=== PATIENT | male | born 1945 | race Caucasian/White ===

== ENCOUNTER → 2017-07-24 | Outpatient (CLI) | payer OTHER, MEDICARE | LOC: FIMAGING 16:08 | PROVIDERS: ATTEND Family Medicine | DX: N50.812 Left testicular pain (principal); N43.3 Hydrocele, unspecified; N44.2 Benign cyst of testis ==

== ENCOUNTER → 2017-11-09 | Outpatient (CLI) | payer OTHER, MEDICARE | LOC: FIMAGING 12:53 | PROVIDERS: ATTEND Family Medicine | DX: M50.31 Other cervical disc degeneration, high cervical region (principal) ==